=== PATIENT | male | born 1950 | race African-American/Black ===

== ENCOUNTER 2019-01-03 13:11 | Inpatient (IN) | payer OTHER, BC ==
[~2019-01-03] VITALS: Ht 177.8 cm; Wt 73.8 kg
[~2019-01-03 13:11] MED LIST: ALAVERT10 MG PO; ARICEPT10 MG PO; AVODART0.5 MG PO; CENTRUM SILVER1 EAC2 PO; CIALIS20 MG PO; CLARITIN10 MG PO; COLACE100 MG PO; DITROPAN XL10 M1 PO; ENABLEX15 MG PO; FERRO-TIME325 MG PO; FISH OIL 1,001000 M2 PO; FLONASE 0.05%50 MCG NASAL; MIRALAX17 GM PO; NAMENDA 10 MG T10 MG PO; NAMENDA XR28 MG PO; OMEPRAZOLE 20 M20 MG PO; OXYBUTYNIN 5 MG5 M2 PO; SIMVASTATIN40 MG PO; TAMSULOSIN HCL0.4 M1 PO; VERAPAMIL E.R240 M1 PO
[2019-01-03 13:13] VITALS: BP 150/72
[2019-01-03 13:28] LABS: ABSOLUTE NEUTROPHILS 1.9 thou/uL (1.4-8.2); BASOPHILS 0.8 % (0.0-2.0); EOSINOPHILS 1.8 % (0.0-3.0); HEMATOCRIT 31.1 % (42.0-52.0); HEMOGLOBIN 10.1 gm/dL (14.0-18.0); LYMPHOCYTES 39.8 % (24.0-44.0); MCH 24.5 pg (26.0-34.0); MCHC 32.6 g/dL (28.0-37.0); MCV 75.2 fL (80.0-100.0); MONOCYTES 10.6 % (1.0-8.0); PLATELET COUNT 221 thou/uL (150-400); RBC 4.14 mil/uL (4.50-6.00); RDW 17.9 % (10.5-14.5); WBC 4.1 thou/uL (4.0-11.0)
[2019-01-03 13:35] LABS: CALCIUM 9.3 mg/dL (8.5-10.1)
[2019-01-03 13:36] LABS: URINE BILIRUBIN NEGATIVE (Negative); URINE BLOOD NEGATIVE (Negative); URINE CLARITY CLEAR; URINE COLOR YELLOW; URINE GLUCOSE-RANDOM* NEGATIVE (Negative); URINE KETONES TRACE (Negative); URINE LEUKOCYTES-REFLEX NEGATIVE (Negative); URINE NITRITE-REFLEX NEGATIVE (Negative); URINE PROTEIN (DIPSTICK) NEGATIVE (Negative); URINE SPECIFIC GRAVITY >= 1.030 (1.005-1.035)
[2019-01-03 13:41] LABS: ALBUMIN 3.9 g/dL (3.4-5.0); TOTAL BILIRUBIN 0.3 mg/dL (<0.1-1.0); TOTAL PROTEIN 7.4 g/dL (6.4-8.2)
[2019-01-03 14:34] VITALS: BP 150/80
--- NOTE | 2019-01-03 16:13 | NUR ---
ATTEMPTED TO GIVE REPORT, NURSE NOT AVAILABLE TO TAKE REPORT
--- NOTE | 2019-01-03 17:32 | NUR ---
KARLA CALLED AND UPDATED ON POC
[2019-01-03 17:36] VITALS: BP 144/83
[2019-01-03 19:52] VITALS: BP 145/85
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
[2019-01-04 00:11] VITALS: BP 145/85
--- NOTE | 2019-01-04 04:02 | NUR ---
PT QUIET AND ON THE EDGE OF THE GROUP ALL EVENING. ESCORTED TO ROOM, AND PROVIDE WITH SCHEDULED HS MEDS. PT STATED THAT HE PROBABLY WOULD NOT SLEEP. DID SLEEP FOR ABOUT 3HRS. CURRENTLY AWAKE BUT RESTING QUIETLY.
--- NOTE | 2019-01-04 09:48 | NUR ---
ASSUMED PATIENT CARE AT 0700. PATIENT UP TIMES ONE STAND-BY ASSIST. ATE 100% OF BREAKFAST, SOCIAL WITH PEER WHO WAS SITTING WITH HIM AT THE TABLE. ONLY OXYBUTININ 5 MG AT THIS TIME, TOOK MED WHOLE. NURSE HAS ATTEMPTED TO CONTACT SPOUSE PER PHONE REGARDING PATIENT'S HOME MEDICATIONS. NEED SPOUSE TO BRING BOTTLES OF HOME MEDICATION, WELL SIGN PATIENT ADMISSION PAPERWORK.
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
[2019-01-04 17:23] VITALS: BP 151/71
[2019-01-04 20:30] VITALS: BP 148/85
[2019-01-04 23:26] VITALS: BP 148/85
[2019-01-04 23:29] VITALS: BP 148/85
--- NOTE | 2019-01-05 04:02 | NUR ---
PT RESTLESS AND PACING AT BEGINNING OF SHIFT. WANDERING INTO OTHER PT ROOMS. BECOMES SURLY WHEN REDIRECTED, AND ASKED TO COME OUT OF OTHERS ROOMS. VERY CONFUSED AND CANNOT FIND HIS OWN ROOM. UP IN DAYROOM OR PACING HALLS MOST OF THE NIGHT. FINALLY SETTLED AND STAYED IN HIS ROOM ABOUT 0300.
[2019-01-05 09:51] VITALS: BP 123/75
[2019-01-05 11:27] VITALS: BP 123/75
--- NOTE | 2019-01-05 11:33 | NUR ---
ASSUMED CARE AT 0700 THIS MORNING. PT. ON THE UNIT FOR BREAKFAST. HE IS VERY CONFUSED AND RESTLESS. HE TOOK HIS MEDICATIONS WITHOUT PROBLEMS. HIS BROUGHT IN A MEDICATION THE PHARMACIST HAS QUESTIONED. THE DRUG IS NAMZARIC 28 MG/DONEPEZIL 10 MG CAPSULES. ATTEMPTED TO CALL DONNY MERCER, BUT HAVE NOT HEARD BACK FROM HIM AT THIS WRITING. WILL ATTEMPT AGAIN TO NOTIFY HIM. VITAL SIGNS ARE STABLE.
--- NOTE | 2019-01-05 18:14 | EKG ---
[place] [address] [facility] [place] [address] ELECTROCARDIOGRAM REPORT Name: JACOB العراقي Room #: 525A-A ADM IN M.R.#: [id number] ������������������ Admission: 01/03/19 ������������������ Attend Phys: Kevin Benitez DO Discharge: ������������������ Date of : 46 Report #: [id number] ����������������������������������������������������������������� [id number] THIS REPORT FOR: //name// 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 : 1950 Requested By: Rosalino Ballard Order Number: [id number] MD: Washington Cho Measurements Intervals [place] Rate: 93 P: 63 WI: 144 QRS: 52 QRSD: 84 T: 33 QT: 343 QTc: 427 Interpretive Statements Sinus rhythm Normal tracing Compared to ECG 04/22/2016 15:47:12 No significant changes Electronically Signed On 01-05-2019 18:14:45 CDT by Washington Cho [email or web address] ��������������������������������������������� <ELECTRONICALLY SIGNED> ���������������������������������������� By: Washington Cho MD, [facility] ��������������������������������������������� 01/05/19 1814 1325 1325 Washington Cho MD, FAC /EPI
--- NOTE | 2019-01-05 19:23 | NUR ---
ASSUMED CARE @ 1900, AMBULATING AD SHARON IN [place] TO ROOM. PLEASANT AFFECT, A&0X3. WILL CONTINUE TO OBSERVE Q 12 MINUTES FOR PATIENT SAFETY.
[2019-01-05 19:53] VITALS: BP 116/65
--- NOTE | 2019-01-06 01:08 | NUR ---
AA&O TO SELF ONLY. TOOK HS MEDICATION WHOLE WITH WATER. HRRR, LUNGS CTA ALL ROMAN, DENIES SI, HI AND DEPRESSION. REPORTS URINE OUTPUT, NO BM TODAY, REPORTS BM YESTERDAY.
--- NOTE | 2019-01-06 04:59 | NUR ---
SLEEPING WELL, EYES CLOSED, RESPIRATIONS EVEN AND UNLABORED, WILL CONTINUE TO MONITOR Q 12 MINUTES FOR RESIDENT SAFETY.
[2019-01-06 05:59] LABS: HEMATOCRIT 30.6 % (42.0-52.0); HEMOGLOBIN 10.1 gm/dL (14.0-18.0); MCH 24.8 pg (26.0-34.0); MCHC 32.9 g/dL (28.0-37.0); MCV 75.4 fL (80.0-100.0); RBC 4.06 mil/uL (4.50-6.00); RDW 18.2 % (10.5-14.5); WBC 4.6 thou/uL (4.0-11.0)
[2019-01-06 06:11] LABS: CALCIUM 9.2 mg/dL (8.5-10.1); CREATININE 0.9 mg/dL (0.7-1.3); POTASSIUM 3.8 mmol/L (3.5-5.1)
--- NOTE | 2019-01-06 06:49 | NUR ---
SLEPT 3 HOURS.
[2019-01-06 07:00] VITALS: BP 117/72
[2019-01-06 12:15] VITALS: BP 117/72
--- NOTE | 2019-01-06 17:48 | NUR ---
Nancy spoke with Pt's concerning treatment. Mrs. Mckeon stated that she is the sole outside laborer of Pt and would like the Pt to return home. Mrs. Talbert is open to home health aide. Mr. Mckeon was able to schedule a family meeting with NANCY for 01/07/19 @ 3 pm.
--- NOTE | 2019-01-06 18:42 | NUR ---
PATIENT SAT UP IN DAY ROOM ALL DAY. ATE MOST OF HIS MEALS. STEADY GAIT NOTED. ORIENTED TO PERSON ONLY. ANSWERS QUESTIONS APPROPRIATELY. CALM AND COOPERATIVE AND HAPPY. PARTICIPATED IN GROUP.
[2019-01-06 19:19] VITALS: BP 139/76
--- NOTE | 2019-01-06 20:00 | NUR ---
ASSUMED CARE OF THE PT AT 1930. ALERT ET ORIENTED X 2. VERY FORGETFUL AT TIMES. MAKES NEEDS KNOWN. WALKS WITH A STEADY GAIT. HEART RATE REGULAR, LUNGS CLEAR BILATERALLY, RESP., EVEN, AND UNLABORED. DENIES ANXIETY, DEPRESSION, SI/HI, AND A/V HALLUNICATIONS. REMAINS ON 12 MINUTE CHECKS FOR HIS SAFETY.
[2019-01-07 13:55] VITALS: BP 138/80
--- NOTE | 2019-01-07 15:28 | NUR ---
PT BEHAVIOR CALM AND COOPERATIVE, HE HAS PARTICIPATED IN GROUP AND APPROPRIATE WITH PEERS. PT TOLERATING ALL MEALS WITHOUT ISSUE, TOOK MEDICATION, AND DENIES PAIN. PATIENT DID TRY TO EXIT FACILITY APPROX 1445, STATING HE WANTED TO GO HOME. PT WAS EASILY REORIENTED AND CALMED AT THAT TIME. CAME UP FOR MEETING WITH DOCTOR AND VISITED WITH WELL. WILL CONTINUE TO MONITOR FOR SAFETY,
[2019-01-07 19:12] VITALS: BP 126/70
--- NOTE | 2019-01-07 23:12 | NUR ---
Care assumed of patient at 1900: Patient ambulating about halls in day room at start of shift. Patient was also able to sit in day room and interact well with another peer. Patient appears less anxious/restless but continues to wander. Patient alert and oriented to person only. Patient provided re-orientation and re-direction frequently. Patient took medication whole without any difficulty. Patient ate 100% snack. Patient is unsure of where he is or why he is here. Patient denies SI/HI/AH/VH. Patient became more difficult to re-direct around 2200. Patient reports that he needs to get home because his lady is waiting for him. Patient re-directed to his room or the day room but it was explained that he has to stay out of other patient rooms. Patient had difficulty understanding this. Patient given the option of staying in the day room or his room. Patient decided to sit in his room and is currently laying in bed awake.
--- NOTE | 2019-01-08 14:27 | NUR ---
TOWARDS POC ASSUME CARE AT 0700. VSS. NO BEHAVIORAL ISSUES NOTED. PT ABLE TO PARTICIPATE TO ACTIVITIES. WILL CONTINUE TO MONITOR.
[2019-01-08 14:59] VITALS: BP 117/69
[2019-01-08 19:25] VITALS: BP 133/75
[2019-01-08 19:29] VITALS: BP 133/75
[2019-01-08 22:30] VITALS: BP 133/75
--- NOTE | 2019-01-09 00:44 | NUR ---
PATIENT UP IN DINING ROOM WHEN THIS NURSE ARRIVED FOR SHIFT AT 1900. HE IS SMILING, COOPERATIVE. HE IS ALERT TO HIMSELF. HE DENIES PAIN. HIS VSS. NO EDEMA. STATES HE HAD BM TODAY. PATIENT SLEEPING IN ROOM. HE IS CONTINENT. BED IN LOW POSITION AND ALARM ON. PATIENT PLEASANTLY CONFUSED AT TIMES. CONTINUING TO MONITOR AND DO ROOM CHECKS FOR PATIENT SAFETY AND COMFORT.
[2019-01-09 08:04] VITALS: BP 125/78
--- NOTE | 2019-01-09 15:56 | NUR ---
ASSUMED CARE OF PT AT APPROX 0700. PT IS ALERT AND ORIENTED TO SELF. IS CONFUSED AND FORGETFUL AT TIMES. PT PARTICIPATED IN GROUP TIME AND HAS BEEN ABLE TO DEMONSTRATE APPROPRIATE BEHAVIOR THROUGHOUT THE DAY. APPROPRIATE APPETITE. AND FRIENDLY WITH PEERS. ASSESSMENT CHARTED. NAD NOTED. WILL CONTIUE TO MONITOR.
[2019-01-09 19:22] VITALS: BP 135/79
[2019-01-09 23:15] VITALS: BP 135/79
--- NOTE | 2019-01-09 23:42 | NUR ---
ASSUMED CARE OF PT @ 20:30. ASSESSMENT COMPLETE, HS MEDS GIVEN WHOLE WIH WATER. TYLENOL 650 PROVIDED FOR NECK PAIN. PAIN LEVEL REDUCED ONLY TO 8/10, AND PT REQUESTED ICE PACK. CERVICAL COLLAR REMOVED AND ICE PACK APPLIED. WILL FOLLOW UP IN 20 MINUTES FOR RESULTS AND TO REAPPLY CERVICAL COLLAR.
--- NOTE | 2019-01-10 05:34 | NUR ---
slept 9.4 hours overnight.
[2019-01-10 07:30] VITALS: BP 138/76
[2019-01-10 08:00] VITALS: BP 138/76
--- NOTE | 2019-01-10 09:00 | NUR ---
PT CHEERFUL THIS AM. PT SMILING AT NURSE AND LAUGHS. PT DIDN'T REMEMBER WHAT HE DID WHEN HE GREW UP. PT TAKING PO MEDS WITHOUT ANY PROBLEMS.
--- NOTE | 2019-01-10 13:39 | NUR ---
Date of Admission: 01/03/19 Date of Activity Therapy Assessment: 01/06/19 Activity Goal: Increase reality orientation and knowledge of impulse control techniques. Initial Goal: 1 Group activity/day Weekly progress towards goal: Achieving current goals Group participation level: Full Behaviors observed: Patient is currently achieving goals as he has been consistent in attendance of two groups each day. He participates to maximum cognitive ability. No aggressive or agitated behaviors have been observed. Plan: Increase goal - 2 groups per day.
--- NOTE | 2019-01-10 19:30 | NUR ---
ASSUMED CARE @ 1900, SITTING ON THE COUCH IN THE DAY ROOM IN FRONT OF THE TV. REPORTS HAPPY, DENIES SI OR HI. DENIES AUDIO AND VISUAL HALLUCINATIONS. HRRR, LUNGS CTA, ABD N X 4 Q REPORTS NO BM TODAY. WILL CONTINUE TO MONITOR Q 12 MINUTES FOR PATIENT SAFETY.
[2019-01-10 19:39] VITALS: BP 175/96
[2019-01-10 23:00] VITALS: BP 175/96
[2019-01-11 07:40] VITALS: BP 118/76
--- NOTE | 2019-01-11 08:30 | NUR ---
PT CHEERFUL TODAY. NO COMPLAINTS, TAKING MEDS WITHOUT ISSUES. FORGETFUL OF DAY.
[2019-01-11 20:13] VITALS: BP 129/79
[2019-01-11 21:02] VITALS: BP 129/79
[2019-01-11 21:05] VITALS: BP 129/79
--- NOTE | 2019-01-12 04:23 | NUR ---
PT OUT WITH PEERS THIS PM. PLEASANT AND COOPERATIVE. TOOK HS MEDS AFTER HS SNACKS, AND WENT TO BED. SLEPT ALL NIGHT TO THIS POINT.
[2019-01-12 09:21] VITALS: BP 104/71
--- NOTE | 2019-01-12 11:37 | NUR ---
ASSUMED CARE OF PT AT 0700. PT IS ALERT AND ORIENTED TO SELF. PT IS PLEASANT AND SMILING SPONTANEOUSLY. SITTING IN DAYROOM AREA FOR MEALS. COOPERATIVE WHEN REDIRECTED. NO AGGRESSIVE BEHAVIOR. NO PHYSICAL DISTRESS NOTED. TOOK MEDICATIONS W/O DIFFICULTY. UP ADLIB W/STEADY GAIT. WILL CONTINUE TO MONITOR THROUGHOUT THE SHIFT. NO SI/HI. PT PLEASANTLY CONFUSED AND REQUIRES FREQUENT REMINDERS.
[2019-01-12 14:43] VITALS: BP 104/71
--- NOTE | 2019-01-12 17:58 | NUR ---
PT UP ADLIB AND SPENT MAJORITY OF SHIFT IN DAYROOM TODAY SOCIAL WITH SELECT PEERS. NO COMPLAINTS VOICED. CONFUSED BUT PLEASANT. NO ACUTE DISTRESS NOTED.
[2019-01-12 22:04] VITALS: BP 134/78
--- NOTE | 2019-01-13 00:21 | NUR ---
Care assumed of patient at 1915: Patient pleasantly confused. Alert and oriented to person only. Patient took HS medication without difficulty. Patient sat in day room and interacted well with staff and peers. Patient had the occasional smile and laugh with staff. Patient calm and cooperative. Required simple one step directions when changing clothing to pajamas. Forgets things easily. Patient has been able to stay in bed since assisted to bed. Patient resting quietly at this time.
[2019-01-13] MEDS ORDERED: DIVALPROEX SOD500 M1 PO (09:42)
[2019-01-13] MEDS ORDERED: NAMENDA 5 MG TAB5 M1 PO (09:43)
[2019-01-13 09:54] VITALS: BP 121/78
[2019-01-13 11:05] VITALS: BP 121/78
--- NOTE | 2019-01-13 12:20 | NUR ---
Patient Name: JACOB العراقي Admission Date: 01/03/19 DISCHARGE PLAN: Pt will be d/c home with his . Care Assessment: Pt was assessed by Dr. Benitez, and diagnosed with Major Neurocognitve Disorder with Behavior Disturbances. Level II Assessment: None Transportation: Pt was transported by his . Special Instructions/Notes: Pt will need a psychiatrist for conitnuance care. schedule appointment with Yoandy at [address] [place] [address] on January 22, 2019 at 10:00am. DISCHARGE TO FACILITY: Facility: Phone: Fax: Address: Contact Name: Phone: PCP: ANNA Psychiatrist: Yoandy at [address] [place] [address] on January 22, 2019.
--- NOTE | 2019-01-13 12:50 | NUR ---
DISCHARGED TO HOME ACCOMPAINIED BY . ATTENDED GROUP AND ATE BREAKFAST AND LUNCH IN DINNING ROOM. CONVERSING WITH PEERS AND . TOLD HE IS READY TO GO HOME AND SEE HIS DOG. SLOW STEADY GAIT. PLEASANT AND COOPERATIVE.
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
== END 2019-01-13 12:53 | disposition home or self-care (01) | DRG 57 ==
LOC: ER 13:11 → SBH 18:10 → EROBS 18:10 → SBH 18:13
PROVIDERS: Emergency Medicine; Hospitalist; ADMIT Psychiatry & Neurology Psychiatry
DX: G30.9 Alzheimer's disease, unspecified (principal); F02.81 Dementia in other diseases classified elsewhere, unspecified severity, with behavioral disturbance; I10 Essential (primary) hypertension; K21.9 Gastro-esophageal reflux disease without esophagitis; E78.00 Pure hypercholesterolemia, unspecified; N40.0 Benign prostatic hyperplasia without lower urinary tract symptoms; F17.210 Nicotine dependence, cigarettes, uncomplicated; E78.5 Hyperlipidemia, unspecified; Z90.49 Acquired absence of other specified parts of digestive tract; Z88.8 Allergy status to other drugs, medicaments and biological substances; Z79.899 Other long term (current) drug therapy
CPT/HCPCS: 10880

== ENCOUNTER 2020-03-04 16:39 | Inpatient (IN) | payer OTHER ==
[~2020-03-04] VITALS: Ht 172.7 cm; Wt 88.5 kg
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
[~2020-03-04 16:39] MED LIST changes: +DIVALPROEX SOD500 M1 PO; +NAMENDA 5 MG TAB5 M1 PO; +OMEPRAZOLE 20 M20 M1 PO; -OMEPRAZOLE 20 M20 MG PO; -TAMSULOSIN HCL0.4 M1 PO; +TAMSULOSIN HCL0.4 MG PO
[2020-03-04 16:40] VITALS: BP 186/93
[2020-03-04 17:06] LABS: URINE BILIRUBIN NEGATIVE (Negative); URINE BLOOD NEGATIVE (Negative); URINE CLARITY CLEAR; URINE COLOR YELLOW; URINE GLUCOSE-RANDOM* NEGATIVE (Negative); URINE KETONES NEGATIVE (Negative); URINE LEUKOCYTES-REFLEX NEGATIVE (Negative); URINE NITRITE-REFLEX NEGATIVE (Negative); URINE PROTEIN (DIPSTICK) NEGATIVE (Negative)
[2020-03-04 17:07] LABS: HEMATOCRIT 36.2 % (42.0-52.0); HEMOGLOBIN 11.7 gm/dL (14.0-18.0); MCH 26.5 pg (26.0-34.0); MCHC 32.4 g/dL (28.0-37.0); MCV 81.9 fL (80.0-100.0); PLATELET COUNT 161 thou/uL (150-400); RBC 4.42 mil/uL (4.50-6.00); RDW 16.8 % (10.5-14.5); WBC 4.8 thou/uL (4.0-11.0)
[2020-03-04 17:21] LABS: ANION GAP 11 mmol/L (7-16); BUN 15 mg/dL (7-18); CHLORIDE 102 mmol/L (98-107); CO2 29 mmol/L (21-32); GLUCOSE 155 mg/dL (74-106); POTASSIUM 3.7 mmol/L (3.5-5.1); SODIUM 142 mmol/L (136-145)
[2020-03-04 17:22] LABS: AMP/METHAMP Negative (Negative); BARBITURATES Negative (Negative); BENZODIAZEPINES Negative (Negative); COCAINE Negative (Negative); METHADONE Negative (Negative); OPIATES Negative (Negative); PCP Negative (Negative)
[2020-03-04 17:29] LABS: ALBUMIN 3.7 g/dL (3.4-5.0); SALICYLATE < 2.8 mg/dL (2.8-20.0); SGOT 34 U/L (15-37); SGPT 32 U/L (30-65); TOTAL BILIRUBIN 0.4 mg/dL (0.2-1.0); TOTAL PROTEIN 8.3 g/dL (6.4-8.2); TROPONIN-I <0.06 ng/mL (<0.06)
[2020-03-04 17:35] LABS: ABSOLUTE NEUTROPHILS 1.7 thou/uL (1.4-8.2); ANISOCYTOSIS 1+; LARGE PLATELETS FEW
--- NOTE | 2020-03-05 07:36 | EKG ---
[facility] [place] [address] ELECTROCARDIOGRAM REPORT Name: العراقيJACOB Antonio Room #: 170-1 ADM IN M.R.#: [id number] Admission: 03/04/20 Attend Phys: Kevin Benitez DO Discharge: Date of : 46 Report #: [id number] THIS REPORT FOR: cc: AKASH - No family physician/PCP AKASH - No family physician/PCP Jalen Mcneill MD [facility] THIS REPORT FOR: //name// [facility] ED Test Date: 2020-03-04 Test Time: 17:27:38 Pat Name: JACOB العراقي Department: Room: 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1950 Requested By: Joaquin Bear Order Number: [id number] MD: Jalen Mcneill Measurements Intervals [place] Rate: 98 P: 52 [place]: 147 QRS: 45 QRSD: 92 T: 17 QT: 369 QTc: 472 Interpretive Statements Sinus rhythm Probable left atrial enlargement Low voltage, precordial leads Borderline T abnormalities, anterior leads Compared to ECG 01/03/2019 13:25:51 Low QRS voltage now present T-wave abnormality now present Electronically Signed On 03-05-2020 7:36:07 CDT by Jalen Mcneill [email or web address] <ELECTRONICALLY SIGNED> By: Jalen Mcneill MD, FACC 03/05/20 0736 1727 1727 Jalen Mcneill MD, [facility] /EPI
[2020-03-05 17:27] VITALS: BP 143/87
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
[2020-03-05 19:26] VITALS: BP 169/93
--- NOTE | 2020-03-05 23:26 | NUR ---
ASSUMED CARE OF PT AT 1900HRS. PT WAS NOT AGGRESSIVE THIS SHIFT. ASSESSMENT CHARTED. PT UNABLE TO VOICE CONCERNS. PT REFUSED ALL HS MEDS. PT SITLL IN COMMON AREA. VSS AND NO S/S OF ACUTE DISTRESS. PT REPORTED OF TO DIFFERENT RN AT 2345HRS.
--- NOTE | 2020-03-06 07:33 | NUR ---
SPOKE TO ON THE PHONE MANUEL. SHE TALKED WITH PT PRIOR TO NURSE. SHE STATED HE HAS BEEN HAVING INSOMNIA FOR A WEEK. HE WOULDN'T GET FULL SLEEP AND WAKER HER UP IN THE NIGHT. SHE STATED THAT SHE HAD A TOTAL KNEE REPLACEMENT FEBRUARY 15. SHE STATED HE STARTED HALLUNCINATING 3-4 WEEKS AGO. SHE SAYS HE WON'T GO TO BATHROOM BECAUSE HE SEES PEOPLE IN THE BATHROOM.
[2020-03-06 08:00] VITALS: BP 169/91
--- NOTE | 2020-03-06 08:14 | NUR ---
PT SITTING IN DINING ROOM EATING BREAKFAST. PT REFUSED FLOMAX THIS AM HE STATED ALREADY TOOK IT. PT IS TAKING A LIKING TO ANOTHER RESIDENT, WALKING AND TALKING WITH THEM. PT DENIES FEELING TIRED, PT DIDN'T GET ANY SLEEP LAST NIGHT. PT UP WALKING AROUND AFTER BREAKFAST AND IS AN EXIT SEEKING, TRYING TO GET OUT OF MAIN DOOR AND ALSO WANTING TO GET INTO BREAK ROOM. PT IS VERY HELPFUL TO OTHER PATIENTS.
[2020-03-06 08:40] VITALS: BP 169/91
--- NOTE | 2020-03-06 12:00 | NUR ---
PT MESSING WITH HIS BRIEF AND SITTING ON COUCH WITH BRIEF DOWN. PT NEEDED DIRECTED TO HIS ROOM X2 STAFF. PT DIDN'T GO INTO THE BATHROOM. PT CHANGED BRIEF AND PANTS WITH ASSISTANCE. PT WAS OPPOSED AT FIRST THEN THANKED THE STAFF AFTER.
--- NOTE | 2020-03-06 12:48 | NUR ---
PT TOOK BP MEDICATION. PT NEEDED ENCOURAGED TO TAKE MED. PT STARTED CHEWING. PT DID HAVE FOOD TO LEFT SIDE OF MOUTH, PT SEEMS TO POCKET FOOD ON LEFT CHEEK.
--- NOTE | 2020-03-06 14:21 | NUR ---
STARTED ZYPREXIA AT THIS TIME. ADM DISOLVABLE PILL IN ICE CREAM. PT TOOK WITHOUT ANY ISSUES. PT IS HAVING ISSUES WITH TRYING TO TAKE OFF HIS PANTS. DID ASSIST PT TO BATHROOM AGAIN. PT DID SIT ON TOILET BUT DIDN'T VOID.
--- NOTE | 2020-03-06 16:43 | NUR ---
TALKED TO PT BROTHER XIMENA ON THE PHONE AND WOULD LIKE TO KEEP UPDATED ON HIS BROTHER STATUS HIS NUMBER [phone]. HE KNOWS THE PRIVACY CODE.
[2020-03-06 20:25] VITALS: BP 131/87
[2020-03-06 21:57] VITALS: BP 131/87
--- NOTE | 2020-03-07 02:51 | NUR ---
Assumed care of patient this pm shift. Patient is pleasantly confused, alert and oriented to self only. Patient was wondering the halls at shift change, possibly exit seeking. Patient is very hard of hearing. Patient does not appear to be in any discomfort. Patient does not appear to be suicidal. Patients affect is blunted. Patient is considered a falls risk and has on a yellow shirt. Patient ambulates without assistance and has a steady gait. Patient took medications crushed in pudding as scheduled. We will continue to monitor per hospital policy.
[2020-03-07 07:30] VITALS: BP 125/69
[2020-03-07 08:30] VITALS: BP 125/69
--- NOTE | 2020-03-07 08:48 | NUR ---
PT SITTING OUT IN DINING ROOM. PT NEEDING ASSISTANCE WITH FEEDING. PT TOOK MEDS WITH SOME CHEWING. PT CHEWS ALOT WITH EATING. PT ABLE TO FEED SELF. PT SEEMS PLEASANT AND CALM. PT GO REST LAST NIGHT. PT WAS SLEEPING AT TABLE BEFORE BREAKFAST ARRIVED. PT DENIES ANY PAIN AND UNABLE TO DESCRIBE OR RATE PAIN.
--- NOTE | 2020-03-07 09:47 | NUR ---
PT TALKED TO MANUEL , HE DIDN'T RECONIZE HER VOICE, HE STARTED DOZING OFF IN CHAIR AFTER THEY TALKED.
--- NOTE | 2020-03-07 11:32 | NUR ---
PT SEEMS CALMER NOW, PT NOT WANDERING AROUND UNIT YESTERDAY. PT IS SITTING IN DINING ROOM NO COMPLAINTS.
[2020-03-07] MEDS ORDERED: NAMZARIC 28 MG1 EACH PO (16:48)
[2020-03-07] MEDS ORDERED: SEROQUEL 25 MG25 MG PO (16:50)
[2020-03-07] MEDS ORDERED: SEROQUEL 100 M100 M1 PO (16:53)
[2020-03-07] MEDS ORDERED: AVODART0.5 MG (16:55)
[2020-03-07] MEDS ORDERED: OXYBUTYNIN 5 MG5 M2 PO (17:26)
[2020-03-07 19:33] VITALS: BP 138/72
[2020-03-08 02:06] VITALS: BP 138/72
--- NOTE | 2020-03-08 02:17 | NUR ---
Assumed care on 03/07/20 @ 19:30, ambulaing throughout the mileu. Took meds crushed in pudding, cooperated with care. @ 0015, provided with Trazadone 50 for insomnia. Went to bed about an hour later, and has been asleep since that time. Will continue to monitor as per unit protocol for patient safety and comfort.
[2020-03-08 08:50] VITALS: BP 128/99
--- NOTE | 2020-03-08 17:02 | NUR ---
Assumed care of patient at 0700. Up in dayroom. Is oriented to person. Pleasant when appraoched. Walks with a gait but is steady. Continent of urine. Went to the bathroom with supervision. Napping intermittently. Responding to questions with simple yes or no and thank you. eating meals in dayroom. Is not interacting with peers. Is not participating in groups. Seen watching toward the television. Denies pain. Fall precautions followed.Cooperative with assessment.
[2020-03-08 19:29] VITALS: BP 126/65
[2020-03-08 22:21] VITALS: BP 126/65
--- NOTE | 2020-03-09 04:19 | NUR ---
Assumed care of patient this pm shift. Patient in mileu during assessment. Patient wanders about without direction and appears to be very pleasantly confused. Patient denies pain. Patient shows no signs of hi/si. Patient is continent of bladder but needs direction to get to his room. Patient is not considered a falls risk and has a steady gait. Patient takes medications crushed in pudding. Patients affect is variable, generally happy. Patients assessment shows no signs of acute distress. We will continue to monitor per hospital policy.
[2020-03-09 07:36] VITALS: BP 121/65
--- NOTE | 2020-03-09 14:05 | NUR ---
PT. IN GROUP WITH RT TODAY, SITTING NEAR FM PEER. PT. KEPT PUTTING HIS HANDS IN HIS PANTS. HE WAS REDIRECTED. FM PEER, WHO WAS HERSELF CONFUSED, STATED, "IT'S OK, WE GO TOGETHER SOMETIMES." PT. WAS WALKED BACK TO THE DINING ROOM AND ALLOWED TO STAY WITH OTHER PEERS WHO DID NOT ATTEND GROUP TODAY, AND STAFF. PT. HAS BEEN "ITCHING" HIS CROTCH A LOT TODAY. HE WAS TAKNE TO THE BATHROOM, THE AREA WAS WASHED WITH SOAP AND WATER AND LATHERED WITH BARRIER CREAM. HE STATED IT HELPED THE ITCH, BUT CONTINUES WITH SAID BEHAVIORS OF ITCHING HIS CROTCH AND HANDS DOWN HIS PANTS.
--- NOTE | 2020-03-09 16:40 | NUR ---
Assumed care of patient at 0700. Up and about the unit. Ambulates slowly with limp but gait steady. Confused, oriented to person. Is hard of hearing. Difficult to understand but is pleasant. Wears a brief but is going to bathroom with redirection. Easily redirected. Medication adherent, taking medications crushed. Is not interacting with peers. Is not participating in groups. Breath sounds clear, no cough. Has not demonstrated aggression or agitation. called to speak to patient. states is getting different messages and was told today the patient needed a jail.
[2020-03-09 19:25] VITALS: BP 140/72
--- NOTE | 2020-03-10 02:41 | NUR ---
03-09-20 CARE TRANSFERED 1899 OBSERVED PT SITTING IN DAY ROOM WATCHING TV. 192 PT AAOX1, VSS, RR EVEN AND NONLABORED ON RA. PT DENIES PAIN AND SI/HI. PT IS [place] BUT FOUND PT HEAR'S BETTER ON RIGHT SIDE; ALSO NOTED PT HAS TROUBLE ARTICULATING THOUGHTS INTO WORDS. DURING MEDICATION ADMIN PT HAD NO DIFFICULTIES. LATER NOTED PT LEFT SIDE LYING RESTING IN BED WITH EYES CLOSED. ZERO S/S OF ACUTE DISTRESS NOTED, PT WILL CONTINUE TO BE MONITOR PER [facility] PROTOCOL.
[2020-03-10 08:50] VITALS: BP 132/68
--- NOTE | 2020-03-10 14:23 | NUR ---
SW recieved a call from Pt's , Enid, concerning placment. Enid provided 2 facilities she would like referrals sent to [facility] and [facility]. SW will send referrals
--- NOTE | 2020-03-10 14:54 | NUR ---
Assumed care 0700. Does not answer questions appropriately. rarely follows directions even when given one step at a time. Talked to on the phone. Later said he loved his . No combativeness thus far in the shift. In good spirits, occasional smiling, polite occasionally saying thank you. Acts like he does not know what nurse is saying to him when asked about suicidality/homicidality and hallucinations. He had hip pain earlier with some relief. Patient prefers junk food per .
[2020-03-10 19:20] VITALS: BP 132/78
--- NOTE | 2020-03-11 05:49 | NUR ---
03-10-20 CARE TRANSFERRED 1900 OBSERVED PT SITTING IN DAY ROOM SOCIALIZING WITH OTHERS. PT AAOX1, VSS, RR EVEN AND NONLABORED RA. PT REPORTS GENERALIZIED PAIN AND RATES 7 ON 0-10 SCALE. PT DENIES SI/HI. PT PRESENTED SMILING, CALM AND COOPERATIVE THROUGHOUT NURSING ASSESSMENT. DURING MEDICATION ADMIN PT HAD NO DIFFICULTIES. LATER NOTED PT LEFT SIDE LYING RESTING IN BED WITH EYES CLOSED. ZERO S/S OF ACUTE DISTRESS NOTED, PT WILL CONTINUE TO BE MONTIOR PER [facility] PROTOCOL.
[2020-03-11 09:02] VITALS: BP 154/81
--- NOTE | 2020-03-11 10:09 | NUR ---
MARCO sent and email to [facility] [employer] to complete medicaid application on the Pt. Sw was informed that the application had been completed and submitted. MARCO sent referral to the following: [facility] [phone] [facility] [phone] [facility] [phone] [facility] [phone] [facility] [phone]
--- NOTE | 2020-03-11 11:48 | NUR ---
RT Progress Note- Barron's participation in recreation therapy groups is minimal. He is accepting of attendance but provides little interaction. He is polite when socializing with peers and staff and has displayed no behaviors during RT interaction. RT staff will continue to encourage participation.
--- NOTE | 2020-03-11 16:13 | NUR ---
Snoring loudly and required multiple reminders to get up for breakfast. Kept nodding off during breakfast. When asked about pain he kept pointing to breakfast tray. Scheduled oxycodone held. called for update, she states he is not on oxycodone but occassionally takes naproxen for arthritic pain. Dr. Cervantes notified, oxycodone dced and prn naproxen order received. Alert to name only. Shakes head "no" to questions about SI/HI. Breath sounds clear. Reg HR auscultated. Color pink with brisk capillary refill and palpable peripheral pulses. Yellow urine per toilet. Active bowel sounds over soft rounded abdomen. Ambulates with slow gait around unit. Needs alot of encouragement to eat. Much more awake at lunch but needed to be fed 50% of meal, ate approximately 30% independently. Wandering around unit at present.
--- NOTE | 2020-03-11 17:53 | NUR ---
MARCO spoke with Enid and provided her with an update on the Pt. MARCO also informed her of referrals that were sent out. Also the [facility] [place] and [facility] were intrested in accepting the Pt. Both placements will have an opening next week in there memory care unit. MARCO again asked Enid to speak with the Pt's family and ask them to limit phone calls. Enid became emotional stating she went to mass today and has asked the upsetting machine operator and quinonez to assist with the family matters. MARCO will continue to follow up
[2020-03-11 19:27] VITALS: BP 140/72
[2020-03-12 02:13] VITALS: BP 140/72
--- NOTE | 2020-03-12 03:47 | NUR ---
Assumed care on 03/11/20 @ 19:15, ambulating ad juan pablo throughout the mileu. Edouard score of 30, low fall risk. Speaks when aproached, his words are clear however his sentences are garbled and make no sense. Cooperative with assessment, HRRR, ABD N x 4Q. Could not help pt understand request to breathe deeply to auscultate lung function. Alert, not able to give own name or answer any other orientation questions. Compliant with medications crushed in orange shebert. Able to feed self the remainder of the ice cream cup. Retired to bed @ about 2300, and has slept well, bed in low position, bed alarm set. Will continue to monitor as per unit protocol.
[2020-03-12 07:00] VITALS: BP 138/64
--- NOTE | 2020-03-12 09:08 | NUR ---
Nutrition: Assessing for early weekend LOS. Admit: dementia, aggressive behavior. Hx: HTN, osteoarthritis, anemia, GERD, HLD. Pt on a heart healthy diet. Not deemed appropriate for interview, thus EMR reviewed. Memory care placement for next week? Per chart, pt unable to given own name or answer orientation questions, plus RN documents sentences garbled/nonsensical. Despite nursing reporting pt needing a lot of encouragement to eat, his PO intake is very adequate. Averaging ~77% of meals this past week, from 03/07 - 03/11. He completes 75-100% of most meals with a few lower intakes at 30-50%. Plus also eats snacks during the day. CBW 192#, BMI of 29.2 kg/m2. D/t overall PO adequacy plus staff support/encouragement, no nutrition interventions identified at this time. Keep as low nutrition risk.
--- NOTE | 2020-03-12 14:40 | NUR ---
Alert and orientated to name only. Ambulates independently with slow, steady gait. Calm and cooperative. Eating minimal amts independently, will eat 100% when being fed. Shakes his head "no" when asked about SI/HI. Confused speech but does follow simple directions. Breath sounds clear. Reg HR auscultated. Color pink with brisk capillary refill and palpable peripheral pulses. Voids per toilet with assistance. Active bowel sounds over soft, rounded abdomen. Sitting with peers during group.
[2020-03-12 19:21] VITALS: BP 120/67
[2020-03-12 22:50] VITALS: BP 120/67
--- NOTE | 2020-03-13 03:03 | NUR ---
Assumed care of patient this pm shift. Patient is pleasantly confused wandering around the unit. Patient is alert and oriented to person only. Patient does not show any signs of hi/si. Patient takes medications crushed in pudding. Patient ambulates without assistance and has a steady gait. Patients assessment shows no signs of acute distress. Patient is mostly nonverbal and wanders into other rooms occasionally but is redirectable. Patient does not show any signs of pain. We will continue to monitor per hospital policy.
[2020-03-13 07:25] VITALS: BP 130/80
--- NOTE | 2020-03-13 11:16 | NUR ---
ASSUMED CARE AT 0700 THIS MORNING. PT. UP IN DINING ROOM, BUT DOZING ON AND OFF. DID NOT EAT MUCH OF BREAKFAST HE DID NOT WAKE UP ENOUGH TO IT IT ALL. HE DID TAKE HIS MEDICATIONS CRUSHED AND IN PUDDING WITHOUT PROBLEMS NOTED. HIS CALLED AND GIVEN AN UPDATE ON PT. CONDITION AND BEHAVIORS. SHE WAS TEARFUL ON THE PHONE AND UPSET SHE WAS UNABLE TO SEE HIM AT DURING THIS ADMISSION. SHE WAS ASKED TO TALK TO THE DURING THE WEEK TO SEE WHEN/IF SHE COULD SEE THE PT. SHE STATED SHE WOULD DO SO.
[2020-03-13 11:21] VITALS: BP 130/80
[2020-03-13 19:28] VITALS: BP 161/86
--- NOTE | 2020-03-14 04:13 | NUR ---
03-13-20 CARE TRANSFERRED 1899 OBSERVED PT SITTING IN DAY ROOM SOCIALIZE WITH OTHERS. 194 PT AAOX1, VSS, RR EVEN AND NONLABORED ON RA. PT PRESENT CONFUSED AND HAS TROUBLE ARTICULATING THOUGHTS INTO WORDS. PT DENIES PAIN AND SI/HI. PT STAYED CALM AND COOPERATIVE THROUGHOUT NURSING ASSESSMENT. DURING MEDICATION ADMIN PT HAD NO DIFFICULTIES TAKING MEDICATION IN PUDDING. LATER PT WAS SUPINE IN BED RESTING WITH EYES CLOSED. LATER NOTED PT UP WALKING HALLWAY THEN EASILY DIRECTED TO DAY ROOM AND NOTED PT RESTING WITH EYES CLOSED IN LOS CHAIR ON AND OFF. ZERO S/S OF ACUTE DISTRESS NOTED, PT WILL CONTINUE TO BE MONITOR PER [facility] PROTOCOL.
[2020-03-14 07:44] VITALS: BP 113/82
--- NOTE | 2020-03-14 09:59 | NUR ---
PT'S BROTHER CALLED ABOUT 0945. PT. HANDED THE PHONE TO ANOTHER PEER WHO WOULD NOT RETURN THE PHONE TO THE STAFF. STAFF OBTAINED THE PHONE FROM THE PEER. THIS RN HELD THE PHONE TO PT'S EAR SO HE COULD HEAR HIS BROTHER. BROTHER TALKED TO THE PT. AND ASKED QUESTIONS, BUT PT. CANNOT ANSWER ONLY IN SHORT SENTENCES, AND MANY OF THOSE ARE INTELLIGABLE. PT'S BROTHER KEPT ASKING ABOUT THE SEDATION OF THE PT. THIS RN REPLIED THAT THE CALLED EARLY AND PT. WAS STILL ASLEEP. NO FURTHER INFORMATIONS WAS OBTAINED OR COMMUNICATED TO THE BROTHER.
--- NOTE | 2020-03-14 13:44 | NUR ---
Assumed care of patient at 0700. Up ad juan pablo. Ambulates with a limp but gait is steady. Remains on Fall precautions. Alert and oriented to person. Hard of hearing. Mood has been upbeat. Laughing and talking gibberish. Is difficult to understand at times. Spoke with on the telephone. Has been fed meals today. Eats slowly and cheeks food at times. Cannot maintian focus. No side effects from medications noted. Does interact with peers and staff. Good eye contact. Breath sounds clear, no cough, bowel sounds present, abdomen round, no tenderness noted. Right foot swollen encouraged and assisted to elevate legs. Taking medications which are crushed. Denies pain.
[2020-03-14 19:47] VITALS: BP 146/69
--- NOTE | 2020-03-15 02:30 | NUR ---
03-14-20 CARE TRANSFERRED 0 OBSERVED PT IN DAY ROOM WATCHING TV. 1935 PT AAOX1, VSS, RR EVEN AND NONLABORED ON RA. PT DENIES SI/HI AND PAIN. PT ASSISTED INTO COMFORTABLE POSITION IN BED, PT REMAINED PLEASANT, CLAM AND COOPERATIVE DURING NURSING ASSESSMENT. LATER PT SUPINE RESTING IN BED WITH EYES CLOSED, PT WAS EASILY AWAKEN TO VOICE, PT HAD NO DIFFICULTIES TAKING MEDICATION, AND PT STATED "delroy". ZERO S/S OF ACUTE DISTRESS NOTED, PT WILL CONTINUE TO BE MONITOR PER [facility] PROTOCOL.
[2020-03-15 07:34] VITALS: BP 132/66
[2020-03-15 13:29] VITALS: BP 132/66
--- NOTE | 2020-03-15 14:04 | NUR ---
ASSUMED CARE AT 0700 TODAY. PT. WAS IN BED. HE WAS COOPERATIVE WITH OBTAINING VITAL SIGNS. HE GOT UP ABOUT 0800 FOR BREAKFAST. HE CAME INTO THE DINING ROOM FOR MEALS. HE ATE BREAKFAST IN THE DINING ROOM. HE WAS PLEASANT THIS MORNING. AFTER BREAKFAST, HE STOOD UP IN THE DINING ROOM AND STARTED PULLING DOWN HIS PANTS. HE WAS TAKEN TO HIS ROOM TO THE BATHROOM. HE SAT ON THE TOILET AND URINATED. HE WAS COOPERATIVE WITH THIS. HE SPOKE WITH HIS AND BROTHER THIS MORNING. PT. DID SPEAK WITH EACH OF THEM. HE HAS BEEN SMILING WHEN HE HAS BEEN INTERACTING WITH PEOPLE.
[2020-03-15 19:34] VITALS: BP 136/71
--- NOTE | 2020-03-16 05:26 | NUR ---
Pt. up in the dayroom most of the evening and offers no complaints. Alert, but very confused. Currently resting quietly in the bed. Cooperative with cares.
[2020-03-16 07:16] VITALS: BP 122/66
--- NOTE | 2020-03-16 16:12 | NUR ---
Alert and orientated to name only. Ambulating around unit with slight limp at times. Confused speech the majority of the time but occassionally makes coherent statements. Denies SI/HI. Calm and cooperative, compliant with meds crushed in apple sauce. Breath sounds clear. Reg HR auscultated. Color pink with brisk capillary refill and palpable peripheral pulses. + 2 edema in lower extremities. Yellow urine per brief. Active bowel sounds over large, full abdomen. Staff later reported that he had large BM in toilet. Sitting in groups. Spent majority of day up ambulating with s/o distress or active exit seeking.
--- NOTE | 2020-03-16 17:17 | NUR ---
NANCY spoke with Shelly adame, at [facility]. Shelly informed the facility was willing to accept the Pt. Shelly stated they would need a copy of the medicaid application and the attachments. Nancy faxed information. Shelly called NANCY back @ 1500 and stated they are willing to accept the Pt however the family would need to be private pay until Medicaid was approved. Nancy informed family could not pay out of pocket at this time.
--- NOTE | 2020-03-16 17:20 | NUR ---
NANCY called Enid and informed her of [facility] asking for private pay until medicaid is approved. Enid confirmed she was unable to pay for the facility. Enid did not have other facilities she would like referrals sent to. Nancy informed referrals would be sent out to several other facilities that may be in the area of her home, however the search would be expanded a further out in an effort to secure a placement for the Pt. Enid agreed to referrals being sent
--- NOTE | 2020-03-16 17:23 | NUR ---
MARCO sent referrals to the following [facility] [phone] [place] [phone] [place] [phone] [place] [phone]
[2020-03-16 19:27] VITALS: BP 136/65
--- NOTE | 2020-03-17 02:34 | NUR ---
PATIENT HAS BEEN SMILING, CALM AND COOPERATIVE. HE AMBULATES SLOWLY BY STEADY ON HIS FEET. HE REFUSES TO USE A WALKER. PATIENT HAS BEEN IN DINING ROOM ALL NIGHT. HE WOULD NOT STAY IN HIS BED AND IS OUT SLEEPING IN A RECLINER AT THIS TIME. HE IS INCOHERENT IN HIS SPEAKING AND DELUSIONAL. HE STATES HE ORDERED SOME THINGS AND HAS THE MONEY TO PAY AND WAS ASKING IF I HAD THE THINGS. I TOLD HIM THE THINGS DIDN'T COME TODAY BUT WILL CHECK TOMORROW. PATIENT TOOK HIS MEDS CRUSHED IN PUDDING. PATIENT IS A/0X1. CONTINUING TO MONITOR.
[2020-03-17 07:30] VITALS: BP 119/68
--- NOTE | 2020-03-17 11:01 | NUR ---
Pt was denied at the following [place]- not accepting new Pt due to active COVID cases in the facility [facility]- No male beds [facility]- no longer has male bed
[2020-03-17 14:22] LABS: HEMATOCRIT 31.4 % (42.0-52.0); HEMOGLOBIN 10.3 gm/dL (14.0-18.0); MCH 26.7 pg (26.0-34.0); MCHC 32.7 g/dL (28.0-37.0); MCV 81.7 fL (80.0-100.0); RBC 3.84 mil/uL (4.50-6.00); RDW 16.9 % (10.5-14.5)
[2020-03-17 19:53] VITALS: BP 125/70
--- NOTE | 2020-03-18 02:07 | NUR ---
03-17-20 CARE TRANSFERRED 0 OBSERVED PT SITTING IN DAY ROOM. APPROXIMATELY 5 PT TAKING PANTS OFF IN DAY ROOM, ASSISTED PT GETTING DRESSED, PT WAS TRYING TO ADJUST SELF FOR COMFORT AND EXPRESSED IRRITATION AT NURSING WHEN TRYING TO EXPLAIN HE WAS REPOSITION SELF IN BRIEF. 1934 PT AAOX1 VSS, RR EVEN AND NONLABORED ON RA. PT DENIES ANY PAIN AND SI/HI. PT PRESENTED REMAINED CALM AND COOPERATIVE AND TOWARDS END OF NURSING ASSESSMENT WAS SMILING. DURING MEDICATION ADMIN PT HAD NO DIFFICULTIES. 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 ZERO S/S OF ACUTE DISTRESS NOTED, PT WILL CONTINUE TO BE MONITOR PER [facility] PROTOCOL.
--- NOTE | 2020-03-18 08:05 | NUR ---
Nutrition: Early nutrition follow up performed this date. Pt continues to need memory care; awaiting placement. Continues on a heart healthy diet with mostly adequate meal intakes, often completing 75-100% of most meals. A few sporadic meals may be 40-50% completion, but pt also consumes 100% of 1-2 snacks per day quite often. Overall 6 day meal average = 73%. Lowest meal intake day was actually yesterday with 40% of 2 meals consumed, 100% HS snack. Aside from yesterday, meal average would be closer to 80% since 03/12. Pt again not seen for interview. Noted to be incoherent in speaking, delusional. Recent large BM on 03/16. Weight is up from 192# (standing) on 03/06 to 195# (bed) per 03/13. Given that pt has been here for several weeks, RD to allow additional menu items on tray like 2% milk, chocolate milk, and Romanian cheese for sandwiches/burgers. Remains low nutrition risk otherwise.
[2020-03-18 12:35] VITALS: BP 119/68
--- NOTE | 2020-03-18 15:29 | NUR ---
Assumed care of patient at 0745. Alert, oriented to person. Ambulates with a limp. Gait steady. Remains on Fall precautions. Monitored closely. Assisted and encouraged at meals. Feeds self with finger foods. Sleepy in am and lunch. Had to be awakened to complete meals. Toileted, taken to the bathroom. Continent with encouragement and reminders. Pleasant, verbal but nonsensical. Breath sounds clear, abdomen soft, bowel sounds active. Both feet swollen at 2+. Encouraged to put feet up. Napped in the morning. Participated in exercise group. Up ad juan pablo about unit.
--- NOTE | 2020-03-18 16:37 | NUR ---
MARCO sent referrals to the following: [facility] [phone] [facility] [phone] [facility] [phone] [facility]
--- NOTE | 2020-03-18 16:41 | NUR ---
MARCO recieved a PC from Enid Mckeon. Enid seemed upset and crying over the phone stating " I don't know what's going on with my ". SW asked what her specific concerns were. Enid stated that the Pt does not know who she is over the phone and cant hold the phone. She also expressed concern about the Pt being too sedated. MARCO went over the medication list with her and provided and update on the Pt's behaviors including not sleeping well at night. Enid seemed to continue to be upset stating she could not talk to the nurse. MARCO explained the nurses were passing meds this morning and helping with breakfast. Enid also stated she wanted to speak with the doctor. MARCO pulled Dr. Riley into the office to participate in the conversation. Dr. Riley again went over medication with Enid and addresses the Pt's sleep issue. Enid was offered a visit with the Pt, as the Pt has been on the unit for more than 14 days. A visit is scheduled for 03/21/2020 @ 11am.
--- NOTE | 2020-03-18 16:57 | NUR ---
MARCO recieved a PC from Pt's brother, Rene Mckeon. Rene was given an update on the Pt. Rene asked if the Pt could go home to live with his . MARCO explained the recommendation for memory care and the factors that went into that recommendation, specifically the safety of the Pt and the caregiver. Rene asked could the family choose a facility. MARCO explained that yes the family can choose but the decision is up to the facility to accept a Pt. MARCO informed of the facilities a referral has been sent to and the decisions from those facilities. MARCO encouraged Rene to speak with Enid concerning the matter and if they have any facilities in mind to let MARCO know so a referral can be sent out. Rene had no further questions or concerns at this time.
--- NOTE | 2020-03-18 19:16 | NUR ---
Alert and orientated to name only. Confused speech in AM and afternoon. Sleepy mid day. Denies SI/HI when asked, no speech or behavior suggestive of SI/HI. Bath done. Some inappropriate touching of staff during dinner. Calm t/o day. Currently sitting with peers.
[2020-03-18 19:35] VITALS: BP 113/61
--- NOTE | 2020-03-18 21:36 | NUR ---
Assumed care on 03-18-29 @ 19:15. Seated in the day room, interacts with peers and staff. Oriented to person only. Speaks and makes eye contact, but there is no sense nor sentence structure to what he says. @ 20:55, urinated on the floor in the day room. Staff seeing this occuring, got a cup and provided something for him to urinate into.
--- NOTE | 2020-03-19 00:48 | NUR ---
Assumed pt's care at 2100 this shift. Pt oriented to person. Confused. Forgetful. Pt can be inappropriate, wanting to touch nursing inappropriately. Pt took meds whole, but chewed them. Would benefit from having meds crushed. Pt currently on the recliner, sleeping off and on. Will continue to monitor.
[2020-03-19 07:41] LABS: % SATURATION 8 % (20-39); IRON 27 ug/dL (65-175); TIBC 352 ug/dL (250-450)
[2020-03-19 07:53] VITALS: BP 149/84
[2020-03-19 08:05] LABS: FERRITIN 29 ng/mL (26-388)
[2020-03-19 09:31] LABS: HEMATOCRIT 33.9 % (42.0-52.0); HEMOGLOBIN 10.8 gm/dL (14.0-18.0); MCH 26.4 pg (26.0-34.0); MCHC 31.8 g/dL (28.0-37.0); RBC 4.09 mil/uL (4.50-6.00); RDW 16.7 % (10.5-14.5); WBC 3.6 thou/uL (4.0-11.0)
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
--- NOTE | 2020-03-19 13:00 | NUR ---
Patient most of the time does not reapond to questions asked of him. He received two call from family- and brother Rene. He was incontinent after lunch large amount of urine-wetting through his brief, blue pants, seat of the recliner, and onto the floor. Has great difficulty following direction-as if he doesn't hear what is being said to him. Abdomen large, firm. Given prune juice and applesauce to help facilitate BM. Indicates he has to have BM and it is not forthcoming. reports he is wworse this past two weeks than he was at home. 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 She does not understand this in her .
--- NOTE | 2020-03-19 15:23 | NUR ---
RT Progress Note- Barron is often seen in the milieu but has little engagement. During recreation therapy groups he typically sleeps, however he has been noted to perk up when music is played. At times he requires reminders of boundaries and space. He continues to lack orientation and ability to follow tasks. RT staff will continue to encourage participation as he tolerates.
--- NOTE | 2020-03-19 16:40 | NUR ---
Remains confused. Does not know know where his room is. Does not initiate conversation with staff. Does have some verbal exchanges and laughter with a female patient at meal time when they are at the same table. At times holds his crotch and is led to his bathroom. Indicated he wanted to have a BM. When taken to bathroom he did not have BM. It was extremely difficult to get him to sit down on the toilet. He was not comprehending what sitting down was. He was calling staff endearing names-honey/sweety. He needed significant help preparing food and being fed at meals. He kept closing his eyes and responding to reminders to open eyes to see food so he could open his mouth appropriately.
--- NOTE | 2020-03-19 16:49 | NUR ---
MARCO recieved a call from Sarah, , at [facility]. Sarah informed [facility] will accept the Pt. MARCO set the d/c for 03/22/2020 @ 2 pm. Sarah stated a new COVID test was not needed.
[2020-03-19 19:48] VITALS: BP 140/79
--- NOTE | 2020-03-19 22:51 | NUR ---
Care assumed of patient at 1915: Patient seated in dayroom at start of shift. Patient alert and oriented to person only. Patient was incontinent of bladder in dayroom at start of shift. Disorganized speech. Difficulty comprehending yes/no questions. Patient easily irritable when toileting cares provided. However, patient is otherwise calm and cooperative. No s/s of pain or discomfort. No behaviors indicative of SI/HI/AH/VH. Patient ate 100% of 2 snacks. Took medication whole in pudding. Patient appears less restless with no wandering behaviors observed. No aggression shown. Currently seated in recliner in dayroom for staff supervision.
[2020-03-20 07:39] VITALS: BP 134/102
--- NOTE | 2020-03-20 09:41 | NUR ---
Assumed care 0700. Patient up in recliner somnolent, difficult to awaken. He was not self feeding due to dozing at intervals--had broken sleep last night. He does not offer conversation. He was nudged awake for just about every bite. He was placed by a female patient he conversed with yesterday at lunch time in hopes he would make more of an effort to stay awake and possible converse, but that did not happen. His meds ended up being crushed and put in jello. With frequent nudging he was more awake and ended up doing some yodeling emphasizing he had his mouth open and was awake. Had to be reminded to close his mouth and swallow his jello (with meds.) He had a brief phone call after RT Group.
--- NOTE | 2020-03-20 14:20 | NUR ---
Received call from his . Kept his eyes shut most of the call and did not initiate conversation. Made sparse acknowledgements of what was saying to him. During call he eventually started holding the phone instead of the nurse doing it for him.
[2020-03-20 19:48] VITALS: BP 123/57
--- NOTE | 2020-03-21 03:22 | NUR ---
Care assumed of patient at 1915: Patient seated in kelli chair at start of shift. Patient alert and oriented to person only. Patient calm and cooperative. Speech clear, but disorganized. Occasionally smiling and appears happy. Confused and forgetful. Cooperative with saulo care. Incontinent of bladder in brief. Patient has not urinated on the floor thus far this shift. Denies pain and discomfort. Patient took HS medication some whole/ some crush with pudding without difficulty. Ate 100% of 2 different snacks. Patient has been able to rest quietly in kelli chair, in dayroom throughout the evening. No aggression or agitation observed.
[2020-03-21 07:51] VITALS: BP 127/77
--- NOTE | 2020-03-21 13:37 | NUR ---
Faxed updates to [facility].
--- NOTE | 2020-03-21 17:00 | NUR ---
Assumed care 0700. Had visit from his who could not understand why he is so sleepy in the AM. She was informed he would be transferred tomorrow at 2 PM to [facility]. Covid test is Negative. He had an improved affect during and after the visit with his . He was smiling much more than usual. When allowed to feed himself he eats very little. 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 Had a couple of snacks. Abdomen is large/round/distended. No BM today seen or reported. On one occasion when taken to toilet insisted on standing but was not able to correctly aim his stream, kept pulling,squeezing, and twisting his urinal. Therefore urine on the toilet and floor and his clothes. No SI/HI/AH/VH.
--- NOTE | 2020-03-21 19:00 | NUR ---
Got up out of recliner, removed lap fely, walked over to talk with female patient. He was [facility] to [facility] to so he could hear the female patient. Was smiling and wide awake.
[2020-03-21 19:49] VITALS: BP 140/77
[2020-03-22 01:12] VITALS: BP 140/77
--- NOTE | 2020-03-22 02:10 | NUR ---
Assumed care on 03/21/20, seated in a kelli chair in the day room. Restless and rises to walk frequently. Cooperates with assessment, WNL. Somewhat resistive to taking meds crushed in applesauce. Eventually takes with encouragement. Retired to bed @ HS, bed in low position, bed alarm set, will continue to monitor as per unit protocol for safety and comfort.
[2020-03-22 07:46] VITALS: BP 102/60
--- NOTE | 2020-03-22 09:16 | NUR ---
MARCO spoke withe Pt's En[place] concerning Pt's d/c and transfer to [place]. Enid confirmed she spoke with Asad on Sunday concerning the Pt's admission on Sunday03/22/2020. Enid stated she spoke to Rene Mckeon concerning the move. Pt is set for d/c 03/22/2020 @2pm ro [facility] of [place].
[2020-03-22] MEDS ORDERED: FLOMAX0.4 MG PO (09:20)
[2020-03-22] MEDS ORDERED: IRON325 PO (09:23)
[2020-03-22] MEDS ORDERED: LIPITOR 20 MG T20 M1 PO (09:25)
[2020-03-22] MEDS ORDERED: VERAPAMIL HCL180 M4 PO (09:26)
[2020-03-22] MEDS ORDERED: NAPROXEN250 MG PO (09:26)
[2020-03-22] MEDS ORDERED: DEPAKOTE SPRIN125 MG PO ×2 (09:27→09:28)
[2020-03-22] MEDS ORDERED: TRAZODONE HCL100 MG PO (09:29)
[2020-03-22] MEDS ORDERED: OLANZAPINE ODT5 MG PO (09:30)
[2020-03-22] MEDS ORDERED: PROTONIX 20 MG20 M1 PO (09:31)
[2020-03-22] MEDS ORDERED: AVODART0.5 MG PO (09:32)
[2020-03-22 10:00] VITALS: BP 102/60
--- NOTE | 2020-03-22 15:28 | NUR ---
0700 ASSUMED CARE OF PATIENT, PATIENT SITTING IN DAYROOM AT THAT TIME. PATIENT SLEEPING IN DAYROOM, PATIENT DOES NOT WAKE UP FOR BREAKFAST.1000 PATIENT WAKES UP AND MEDICATION GIVEN CRUSHED IN YOGURT. PATIENT UNABLE TO ANSWER QUESTIONS. PATIENT TO ROOM TO CHANGE BRIEF. PATIENT BACK TO DAYROOM, SLEEPING ON AND OFF AT TIMES. PATIENT IS QUIET. PATIENT AWAKE AND ALERT, ORIENTED X1. LS CLEAR, BS ACTIVE. 1116 PATIENT WAS NOTED ON THE FLOOR IN DAYROOM, UNDER TABLE. NO WITNESSES TO POSSIBLE FALL AT THAT TIME. PATIENT VS BP- 113/70 P- 101. NO INJURIES NOTED. PATIENT ASSISTED UP TO CHAIR X [address] NOTIFIED, NOTIFIED OF FALL AND DC INSTRUCTIONS. PATIENT BP REASSESSED AT 1230 BP-98/83 P-103 DR STEVE AWARE OF VS. PATIENT CHANGED AND DRESSED FOR DC. PATIENT GIVEN MEDICATION AT 1410 WITH YOGURT WITHOUT DIFFICULTY. 1422 MEDICAL TRANSPORT HERE. PATIENT TRANSFERED TO AND DC WITH TRANSPORTATION. PATIENT BELONGING IN HAND WITH PACKET FOR FACILITY. 1530 FACILITY CALLED AND REPORT GIVEN TO LOREE CASTILLO STAFF MEMBER.
== END 2020-03-22 14:00 | DRG 57 ==
LOC: ER 16:39 → SBH 18:29 → EROBS 18:29 → SBH 18:29
PROVIDERS: Emergency Medicine; Hospitalist; ADMIT Psychiatry & Neurology Psychiatry; ATTEND Psychiatry & Neurology Psychiatry
DX: G30.9 Alzheimer's disease, unspecified (principal); F01.51 Vascular dementia, unspecified severity, with behavioral disturbance; F02.81 Dementia in other diseases classified elsewhere, unspecified severity, with behavioral disturbance; I10 Essential (primary) hypertension; E78.5 Hyperlipidemia, unspecified; N40.0 Benign prostatic hyperplasia without lower urinary tract symptoms; K21.9 Gastro-esophageal reflux disease without esophagitis; D50.0 Iron deficiency anemia secondary to blood loss (chronic); M19.90 Unspecified osteoarthritis, unspecified site; F29 Unspecified psychosis not due to a substance or known physiological condition; Z20.828 Contact with and (suspected) exposure to other viral communicable diseases; Z90.49 Acquired absence of other specified parts of digestive tract; Z79.899 Other long term (current) drug therapy; Z87.891 Personal history of nicotine dependence; Z88.8 Allergy status to other drugs, medicaments and biological substances
CPT/HCPCS: 10880